=== PATIENT | female | born 1960 | race Caucasian/White ===

== ENCOUNTER → 2016-05-28 | Outpatient (CLI) | payer BC ==
[~2016-05-28] MED LIST: AMOX875T PO; ASPI-435 PO; ASPI325T45 PO; BIOT1CAP8 PO; CALC500C3 PO; CHOL2000 PO; CLTP; COENCAP8 PO; CYCL10TA6 PO; CYTM25 PO; HYDR-5688 PO; LEVO125T72 PO; METF500T PO; METH4PAK4 PO; MULT-506 PO; SIMV10TA2 PO; SYN100 PO; co q-10 PO
[2016-05-28 12:41] LABS: HEMATOCRIT 45.1 % (37-47); MEAN CELL VOLUME 88.4 fL (80-100); MEAN CORPUSCULAR HEMOGLOBIN 30.2 pg (25-34); MEAN CORPUSCULAR HGB CONC 34.1 g/dl (32-36); MEAN PLATELET VOLUME 10.5 fL (7.4-10.4); PLATELET COUNT 305 K/uL (130-400); WHITE BLOOD COUNT 10.59 K/uL (4.8-10.8)
[2016-05-28 13:17] LABS: ALKALINE PHOSPHATASE 69 U/L (45-117); ALT/SGPT 34 U/L (12-78); AMYLASE 72 U/L (25-115); AST/SGOT 16 U/L (15-37)
== END | disposition home or self-care (01) ==
LOC: C.LAB 11:47
PROVIDERS: ATTEND Nurse Practitioner Family
DX: R10.31 Right lower quadrant pain (principal); K80.20 Calculus of gallbladder without cholecystitis without obstruction

== ENCOUNTER 2016-05-29 08:48 | Inpatient (IN) | payer BC, OTHER ==
[2016-05-29] VITALS (7 sets, daily range): BP systolic 102–134; BP diastolic 64–89; PULSE 63–78; TEMP 36.3–36.6; O2SAT 94–99; Ht 160 cm; Wt 93.1 kg
[~2016-05-29] VITALS: Ht 160 cm; Wt 93.1 kg
[~2016-05-29 08:48] MED LIST changes: -AMOX875T PO; -ASPI325T45 PO; -CALC500C3 PO; -CHOL2000 PO; -COENCAP8 PO; -HYDR-5688 PO; -LEVO125T72 PO; -SIMV10TA2 PO
[2016-05-29] MEDS ORDERED: ONDANSETRON INJ 2 MG/ML 2 ML VIAL IV STA (09:09)
[2016-05-29] MEDS ORDERED: SODIUM CHLORIDE 0.9% 1000ML 1,000 ML IV STA (09:09)
[2016-05-29] MEDS ORDERED: KETOROLAC TROMETHAMINE 30 MG/ML VIAL IV STA (09:09)
[2016-05-29 09:28] LABS: BASO % 0.2 %; BASO ABS # 0.02 K/uL (0-0.2); COMPLETE YES; EOS % 0.5 %; IG% 0.3 %; LYMPH % 23.1 %; LYMPH ABS # 2.97 K/uL (1.2-3.4); MEAN CELL VOLUME 87.3 fL (80-100); MEAN CORPUSCULAR HEMOGLOBIN 30.2 pg (25-34); MEAN CORPUSCULAR HGB CONC 34.5 g/dl (32-36); MEAN PLATELET VOLUME 10.4 fL (7.4-10.4); MONO % 8.4 %; NEUT % 67.5 %; PLATELET COUNT 301 K/uL (130-400); RED BLOOD COUNT 5.04 M/uL (4.2-5.4); WHITE BLOOD COUNT 12.88 K/uL (4.8-10.8)
--- NOTE | 2016-05-29 09:31 | DIAGNOSTIC IMAGING REPORT ---
CHEST ONE VIEW PORTABLE CLINICAL HISTORY: Chest/abdominal pain COMPARISON STUDY: 09/08/2005 FINDINGS: The cardiac and mediastinal contours are normal. There is no evidence of focal pulmonary consolidation. There is no evidence of failure. No pleural effusions are visualized.[ No free air is visualized. IMPRESSION: No active disease in the chest. Electronically signed by: Alphonso Mcdaniels M.D. 05/29/2016 9:29 AM Dictated Date/Time: 05/29/2016 9:28 AM
[2016-05-29 09:46] LABS: URINE APPEARANCE CLOUDY (CLEAR); URINE COLOR DK YELLOW; URINE EPITHELIAL CELL AUTO >30 /lpf (0-5); URINE NITRITE NEG (NEG); URINE PH 5.5 (4.5-7.5); URINE SPECIFIC GRAVITY 1.024 (1.000-1.030); UROBILINOGEN NEG (NEG); ZZUR CULT IF INDIC CLEAN CATCH YES
[2016-05-29 09:46] LABS: CALCIUM 9.3 mg/dl (8.5-10.1); CREATININE 0.93 mg/dl (0.60-1.20)
[2016-05-29] MEDS ORDERED: SIMV10TA2 PO (09:54)
[2016-05-29] MEDS ORDERED: CALC500C3 PO (09:54)
[2016-05-29] MEDS ORDERED: LEVO125T72 PO (09:54)
[2016-05-29] MEDS ORDERED: ASPI325T45 PO (09:54)
[2016-05-29] MEDS ORDERED: CYTM25 PO (09:54)
[2016-05-29] MEDS ORDERED: CHOL2000 PO (09:54)
[2016-05-29] MEDS ORDERED: COENCAP8 PO (09:55)
[2016-05-29 09:57] LABS: MANUAL MICROSCOPIC REQUIRED? NO; REVIEW REQ? YES; URINE BILIRUBIN NEG (NEG)
[2016-05-29 10:12] LABS: URINE MUCUS PRESENT (NONE PRSENT)
--- NOTE | 2016-05-29 11:21 | DIAGNOSTIC IMAGING REPORT ---
BILIARY ULTRASOUND CLINICAL HISTORY: Right upper quadrant abdominal pain COMPARISON STUDY: No previous studies for comparison. FINDINGS: The liver is of increased echogenicity, a nonspecific finding most often seen in hepatic steatosis. There are multiple gallstones. There is mild gallbladder wall thickening and trace pericholecystic fluid. Given the symptoms, the findings may represent acute cholecystitis. There is no ductal dilatation. The common bile duct measures 3 mm. The pancreas was nonvisualized. The technologist reports the patient was tender to gallbladder scanning. IMPRESSION: 1. Multiple gallbladder calculi, distended gallbladder, mild gallbladder wall thickening, trace pericholecystic fluid. Given history of right upper quadrant abdominal pain, the findings are suspicious for acute cholecystitis. 2. No evidence of ductal dilatation. 3. Nondiagnostic evaluation the pancreas 4. Suspected hepatic steatosis Electronically signed by: Alphonso Mcdaniels M.D. 05/29/2016 11:19 AM Dictated Date/Time: 05/29/2016 11:17 AM
--- NOTE | 2016-05-29 11:44 | EMERGENCY ROOM VISIT NOTE ---
History Report prepared by Rigo: Vy Laughlin Under the Supervision of: Dr. Gilbert Crook D.O. First contact with patient: 09:01 Chief Complaint: ABDOMINAL PAIN Stated Complaint: EXTREME PAIN UPPER ABD AROUND TO BACK, MATHIAS, NAUSEA Nursing Triage Summary: Abdominal pain that radiates into her back. Seen by her PCP yesterday, had labs drawn and is scheduled for a ultrasound tomorrow. Pt states the pain is getting worse. History of Present Illness The patient is a 56 year old female who presents to the Emergency Room with complaints of worsening upper abdominal pain for the past 3 days. She rates her discomfort as a 6/10 and states the pain radiates into her back. She does have a history of low back pain, but states her current symptoms do not feel similar to her chronic pain. She saw her PCP, Dr. Neil, yesterday and had labs drawn and an EKG, and is scheduled for an ultrasound tomorrow. She states the labs and EKG came back unremarkable. This morning, she developed nausea and a headache. She has not been able to eat yet today. Source of History: patient Onset: 3 days [employer] Position: abdomen Symptom Intensity: 6/10 Timing: worsening Associated Symptoms: + back pain, + headache, + nausea, No vomiting Review of Systems See HPI for pertinent positives & negatives. A total of 10 systems reviewed and were otherwise negative. Past Medical & Surgical Medical Problems: (1) History of low back pain (2) History of thyroid cancer Surgical Problems: (1) History of section Social History Smoking Status: Never Smoker Smokeless Tobacco Use: No Alcohol Use: occasionally Drug Use: none Marital Status: Housing Status: lives with family Occupation Status: employed Current/Historical Medications Scheduled Aspirin (Aspirin 81), 1 TAB PO EVERY 2 DAYS Calcium Carbonate (Tums), 500 MG PO DAILY Cholecalciferol (Vitamin D3), 2,000 UNIT PO DAILY Coenzyme Z35-Xcgugns E (Coenzyme Q10), 1 CAP PO DAILY Levothyroxine Sodium (Synthroid), 125 MCG PO QAM Liothyronine Sodium (Liothyronine Sodium), 12.5 MCG PO QAM Metformin Hcl (Glucophage), 500 MG PO BID Multivitamin (Multivitamin), 1 TAB PO DAILY Simvastatin (Zocor), 10 MG PO Q2D Scheduled PRN Aspirin (Aspirin), 325 MG PO DAILY PRN for Pain Allergies Coded Allergies: Lisinopril (Unverified Allergy, Unknown, COUGHING, 05/29/16) Physical Exam Vital Signs Date Time Temp Pulse Resp B/P Pulse Ox O2 Delivery O2 Flow Rate FiO2 05/29/16 11:34 74 16 118/78 97 Room Air 05/29/16 10:18 71 18 124/84 95 Room Air 05/29/16 08:56 36.8 90 18 133/99 97 Room Air Physical Exam CONSTITUTIONAL/VITAL SIGNS: Reviewed / noted above. GENERAL: Non-toxic in appearance. INTEGUMENTARY: Warm, dry, and [place]. HEAD: Normocephalic. EYES: without scleral icterus or trauma. ENT/OROPHARYNX: clear and moist. LYMPHADENOPATHY/NECK: Is supple without lymphadenopathy or meningismus. RESPIRATORY: Lungs clear and equal. CARDIOVASCULAR: Regular rate and rhythm. GI/ABDOMEN: Soft, tender to the RUQ. No organomegaly or pulsatile mass. No rebound or guarding. Normal bowel sounds. EXTREMITIES: Warm and well perfused. BACK: No CVA tenderness. NEUROLOGICAL: Intact without focal deficits. PSYCHIATRIC: normal affect. MUSCULOSKELETAL: Normally developed with good muscle tone. Medical Decision & Procedures ER Provider Diagnostic Interpretation: This X-Ray was reviewed and interpreted by myself and the radiologist. CHEST ONE VIEW PORTABLE IMPRESSION: No active disease in the chest. Electronically signed by: Alphonso Mcdaniels M.D. 05/29/2016 9:29 AM Laboratory Results 05/29/16 09:15 Red Blood Count 5.04, Mean Corpuscular Volume 87.3, Mean Corpuscular Hemoglobin 30.2, Mean Corpuscular Hemoglobin Concent 34.5, Mean Platelet Volume 10.4, Neutrophils (%) (Auto) 67.5, Lymphocytes (%) (Auto) 23.1, Monocytes (%) (Auto) 8.4, Eosinophils (%) (Auto) 0.5, Basophils (%) (Auto) 0.2, Neutrophils # (Auto) 8.71, Lymphocytes # (Auto) 2.97, Monocytes # (Auto) 1.08, Eosinophils # (Auto) 0.06, Basophils # (Auto) 0.02 05/29/16 09:15 Test 05/29/16 09:15 05/29/16 09:30 White Blood Count 12.88 K/uL (4.8-10.8) Red Blood Count 5.04 M/uL (4.2-5.4) Hemoglobin 15.2 g/dL (12.0-16.0) Hematocrit 44.0 % (37-47) Mean Corpuscular Volume 87.3 fL (80-100) Mean Corpuscular Hemoglobin 30.2 pg (25-34) Mean Corpuscular Hemoglobin Concent 34.5 g/dl (32-36) Platelet Count 301 K/uL (130-400) Mean Platelet Volume 10.4 fL (7.4-10.4) Neutrophils (%) (Auto) 67.5 % Lymphocytes (%) (Auto) 23.1 % Monocytes (%) (Auto) 8.4 % Eosinophils (%) (Auto) 0.5 % Basophils (%) (Auto) 0.2 % Neutrophils # (Auto) 8.71 K/uL (1.4-6.5) Lymphocytes # (Auto) 2.97 K/uL (1.2-3.4) Monocytes # (Auto) 1.08 K/uL (0.11-0.59) Eosinophils # (Auto) 0.06 K/uL (0-0.5) Basophils # (Auto) 0.02 K/uL (0-0.2) RDW Standard Deviation 39.6 fL (36.4-46.3) RDW Coefficient of Variation 12.4 % (11.5-14.5) Immature Granulocyte % (Auto) 0.3 % Immature Granulocyte # (Auto) 0.04 K/uL (0.00-0.02) Anion Gap 14.0 mmol/L (3-11) Est Creatinine Clear Calc Drug Dose 73.2 ml/min Estimated GFR () 79.6 Estimated GFR (Non- 68.7 BUN/Creatinine Ratio 10.0 (10-20) Calcium Level 9.3 mg/dl (8.5-10.1) Total Bilirubin 0.8 mg/dl (0.2-1) Direct Bilirubin 0.2 mg/dl (0-0.2) Aspartate Amino Transf (AST/SGOT) 12 U/L (15-37) Alanine Aminotransferase (ALT/SGPT) 31 U/L (12-78) Alkaline Phosphatase 71 U/L (45-117) Total Protein 7.5 gm/dl (6.4-8.2) Albumin 4.1 gm/dl (3.4-5.0) Lipase 168 U/L (73-393) Urine Color DK YELLOW Urine Appearance CLOUDY (CLEAR) Urine pH 5.5 (4.5-7.5) Urine Specific [place] 1.024 (1.000-1.030) Urine Protein 1+ (NEG) Urine Glucose (UA) NEG (NEG) Urine Ketones TRACE (NEG) Urine Occult Blood TRACE (NEG) Urine Nitrite NEG (NEG) Urine Bilirubin NEG (NEG) Urine Urobilinogen NEG (NEG) Urine Leukocyte Esterase SMALL (NEG) Urine WBC (Auto) 10-30 /hpf (0-5) Urine RBC (Auto) 5-10 /hpf (0-4) Urine Hyaline Casts (Auto) 10-30 /lpf (0-5) Urine Epithelial Cells (Auto) >30 /lpf (0-5) Urine Bacteria (Auto) NEG (NEG) Urine Renal Epithelial Cells /lpf (0-5) Urine Mucus PRESENT (NONE PRSENT) Laboratory results as stated above per my review. Medications Administered Medications (Trade) Dose Ordered Sig/Oksana Route Start Time Stop Time Status Last Admin Dose Admin Sodium Chloride (Nss 1000ml) 1,000 ml @ 999 mls/hr Q1H1M STAT IV 05/29/16 09:09 05/29/16 10:09 DC 05/29/16 09:09 999 MLS/HR Ondansetron HCl (Zofran Inj) 4 mg NOW STAT IV 05/29/16 09:09 05/29/16 09:11 DC 05/29/16 09:18 4 MG Ketorolac Tromethamine (Toradol Inj) 30 mg NOW STAT IV 05/29/16 09:09 05/29/16 09:11 DC 05/29/16 09:19 30 MG ED Course 0905: Previous medical records were reviewed. The patient was evaluated in room A11B. A complete history and physical examination was performed. 0909: Toradol 30 mg IV, Zofran 4 mg IV, NSS 1000 ml @ 999 mls/hr IV. 1138: I discussed the patient's case with Dr. [place], [facility] [place]. The patient will be further evaluated. 1140: I reassessed the patient. She is resting comfortably. I discussed her results and my recommendation that she be further evaluated by a general surgeon. She verbalized complete understanding and agreement. Medical Decision Differential considered: pancreatitis, hepatitis, or acute cholecystitis, AAA, UTI, pyelonephritis, kidney stones, appendicitis, diverticulitis, shingles, bowel obstruction mesenteric ischemia, intussusception,hernia, ovarian torsion, ruptured ovarian cyst,ectopic , . This is a 56-year-old female who presents to the ED with a chief complaint of epigastric and right upper quadrant pain. The patient states that she has had onset of symptoms Monday morning. She was seen by her PCP yesterday and had a normal CBC and a slightly elevated lipase and normal LFTs. She was scheduled to have an ultrasound tomorrow. She came in for continued pain today. The patient has tenderness the right upper quadrant on exam. Her CBC reveals a white blood cell count of 12.8. A complete metabolic panel was normal. Lipase was normal today. Chest x-ray did not show acute disease. Urine appears contaminated. Ultrasound of her gallbladder shows findings consistent with acute cholecystitis. I spoke with Dr. Thomas, from surgery, he will see the patient for further disposition. Consults Time Called: 1137 Consulting Physician[facility] Returned Call: [phone] I discussed the patient's case with KIMBERLEE Mir General Surgery. The patient will be further evaluated. Impression Primary Impression: Cholecystitis Scribe Attestation The scribe's documentation has been prepared under my direction and personally reviewed by me in its entirety. I confirm that the note above accurately reflects all work, treatment, procedures, and medical decision making performed by me. Departure Information Dispostion Being Evaluated By Surgeon Kee Jean M.D. (PCP) Patient Instructions My [facility]
[2016-05-29] MEDS ORDERED: CEFOXITIN SOD 2 GM VIAL IV STA (12:10)
[2016-05-29] MEDS ORDERED: FENTANYL CITRATE INJ 50 MCG/1 ML 2 ML VIAL ONE ×2 (12:13→13:11)
[2016-05-29] MEDS ORDERED: MIDAZOLAM HCL 1 MG/ML 2ML VIAL ONE (12:13)
--- NOTE | 2016-05-29 12:15 | History and Physical ---
History & Physical Date & Time of Service: May 29, 2016 at 12:10 Chief Complaint: Extreme Pain Upper Abd Around To Back, Benitez, Nausea Primary Care Physician: Kee Neil M.D. History of Present Illness 56 yo female with abd pain and findings c/w cholecystitis- yesterday was in PCP' s office with elev lipase- nl today u/s- mult gs , distended , fluid Social History Smoking Status: Never Smoker Smokeless Tobacco Use: No Drug Use: none Marital Status: Occupational Status: employed Immunizations History of Influenza Vaccine: Unknown History of Tetanus Vaccine?: Unknown Tetanus Immunization Date: May 08, 2005 History of Pneumococcal: Unknown History of Hepatitis B Vaccine: Unknown Hepatitis Immunization Date: September 13, 1995 Multi-Drug Resistant Organisms History of MDRO: No Allergies Coded Allergies: Lisinopril (Unverified Allergy, Unknown, COUGHING, 05/29/16) Home Medications Scheduled Aspirin (Aspirin 81), 1 TAB PO EVERY 2 DAYS Calcium Carbonate (Tums), 500 MG PO DAILY Cholecalciferol (Vitamin D3), 2,000 UNIT PO DAILY Coenzyme N81-Dhnimwn E (Coenzyme Q10), 1 CAP PO DAILY Levothyroxine Sodium (Synthroid), 125 MCG PO QAM Liothyronine Sodium (Liothyronine Sodium), 12.5 MCG PO QAM Metformin Hcl (Glucophage), 500 MG PO BID Multivitamin (Multivitamin), 1 TAB PO DAILY Simvastatin (Zocor), 10 MG PO Q2D Scheduled PRN Aspirin (Aspirin), 325 MG PO DAILY PRN for Pain Review of Systems Constitutional: No chills, No fever Respiratory: No cough, No sputum Cardiovascular: No chest pain Abdomen: + nausea, + pain, No vomiting Genitourinary - Female: No dysuria Neurologic: No memory loss Endocrine: No fatigue Integumentary: No rash Physical Exam Vital Signs Date Time Temp Pulse Resp B/P Pulse Ox O2 Delivery O2 Flow Rate FiO2 05/29/16 11:34 74 16 118/78 97 Room Air 05/29/16 10:18 71 18 124/84 95 Room Air 05/29/16 08:56 36.8 90 18 133/99 97 Room Air General Appearance: no apparent distress Head: atraumatic Eyes: sclerae normal Neck: supple Respiratory/Chest: normal breath sounds, no respiratory distress Cardiovascular: regular rate, rhythm Abdomen/GI: soft, + tenderness (RUQ) Extremities/Musculoskelatal: no pedal edema Neurologic/Psych: alert Skin: no rash Diagnostics Laboratory Results Results Past 24 Hours Test 05/29/16 09:15 05/29/16 09:30 Range/Units White Blood Count 12.88 4.8-10.8 K/uL Red Blood Count 5.04 4.2-5.4 M/uL Hemoglobin 15.2 12.0-16.0 g/dL Hematocrit 44.0 37-47 % Mean Corpuscular Volume 87.3 80-100 fL Mean Corpuscular Hemoglobin 30.2 25-34 pg Mean Corpuscular Hemoglobin Concent 34.5 32-36 g/dl Platelet Count 301 130-400 K/uL Mean Platelet Volume 10.4 7.4-10.4 fL Neutrophils (%) (Auto) 67.5 % Lymphocytes (%) (Auto) 23.1 % Monocytes (%) (Auto) 8.4 % Eosinophils (%) (Auto) 0.5 % Basophils (%) (Auto) 0.2 % Neutrophils # (Auto) 8.71 1.4-6.5 K/uL Lymphocytes # (Auto) 2.97 1.2-3.4 K/uL Monocytes # (Auto) 1.08 0.11-0.59 K/uL Eosinophils # (Auto) 0.06 0-0.5 K/uL Basophils # (Auto) 0.02 0-0.2 K/uL RDW Standard Deviation 39.6 36.4-46.3 fL RDW Coefficient of Variation 12.4 11.5-14.5 % Immature Granulocyte % (Auto) 0.3 % Immature Granulocyte # (Auto) 0.04 0.00-0.02 K/uL Sodium Level 140 136-145 mmol/L Potassium Level 4.0 3.5-5.1 mmol/L Chloride Level 103 98-107 mmol/L Carbon Dioxide Level 23 21-32 mmol/L Anion Gap 14.0 3-11 mmol/L Blood Urea Nitrogen 9 7-18 mg/dl Creatinine 0.93 0.60-1.20 mg/dl Est Creatinine Clear Calc Drug Dose 73.2 ml/min Estimated GFR () 79.6 Estimated GFR (Non- 68.7 BUN/Creatinine Ratio 10.0 10-20 Random Glucose 128 70-99 mg/dl Calcium Level 9.3 8.5-10.1 mg/dl Total Bilirubin 0.8 0.2-1 mg/dl Direct Bilirubin 0.2 0-0.2 mg/dl Aspartate Amino Transf (AST/SGOT) 12 15-37 U/L Alanine Aminotransferase (ALT/SGPT) 31 12-78 U/L Alkaline Phosphatase 71 45-117 U/L Total Protein 7.5 6.4-8.2 gm/dl Albumin 4.1 3.4-5.0 gm/dl Lipase 168 73-393 U/L Urine Color DK YELLOW Urine Appearance CLOUDY CLEAR Urine pH 5.5 4.5-7.5 Urine Specific [place] 1.024 1.000-1.030 Urine Protein 1+ NEG Urine Glucose (UA) NEG NEG Urine Ketones TRACE NEG Urine Occult Blood TRACE NEG Urine Nitrite NEG NEG Urine Bilirubin NEG NEG Urine Urobilinogen NEG NEG Urine Leukocyte Esterase SMALL NEG Urine WBC (Auto) 10-30 0-5 /hpf Urine RBC (Auto) 5-10 0-4 /hpf Urine Hyaline Casts (Auto) 10-30 0-5 /lpf Urine Epithelial Cells (Auto) >30 0-5 /lpf Urine Bacteria (Auto) NEG NEG Urine Renal Epithelial Cells 0-5 /lpf Urine Mucus PRESENT NONE PRSENT Microbiology Results 05/29/16 Urine Culture, Received Pending Impression Assessment and Plan 05/29/16- pt with acute cholecystitis- for lap tisha, possible cholangiogram, possible open operation
[2016-05-29] MEDS ORDERED: SCOPOLAMINE 1.5 MG TDSY TD ONE (12:38)
[2016-05-29] MEDS ORDERED: LIDOCAINE HCL 2% 2 ML VIAL (20MG/ML) ONE (13:12)
[2016-05-29] MEDS ORDERED: ROCURONIUM BROMIDE 10 MG/ML 5 ML VIAL ONE (13:12)
[2016-05-29] MEDS ORDERED: ONDANSETRON INJ 2 MG/ML 2 ML VIAL ONE (13:12)
[2016-05-29] MEDS ORDERED: DiphenhydrAMINE HCL 50 MG/ML VIAL ONE (13:12)
[2016-05-29] MEDS ORDERED: GLYCOPYRROLATE INJ 0.2 MG/ML VIAL ONE (13:12)
[2016-05-29] MEDS ORDERED: PROPOFOL IV EMULSION 10 MG/ML 20 ML VIAL IV ONE (13:12)
[2016-05-29] MEDS ORDERED: NEOSTIGMINE METHYLSULFATE 5 MG/5 ML SYR ONE (13:12)
[2016-05-29] MEDS ORDERED: METOCLOPRAMIDE HCL INJ 5 MG/ML 2 ML VIAL ONE (13:12)
[2016-05-29] MEDS ORDERED: DEXAMETHASONE SOD INJ 4 MG/ML VIAL ONE (13:12)
[2016-05-29] MEDS ORDERED: CEFOXITIN SOD 1 GM VIAL ONE (13:19)
[2016-05-29] MEDS ORDERED: HYDROmorphone INJ 1 MG/ML SYR IV PRN ×2 (14:00→14:30)
[2016-05-29] MEDS ORDERED: ATROPINE SULFATE 0.1 MG/ML 5ML SYR IV PRN (14:00)
[2016-05-29] MEDS ORDERED: FENTANYL CITRATE INJ 50 MCG/1 ML 2 ML VIAL IV PRN (14:00)
[2016-05-29] MEDS ORDERED: LABETALOL HCL IV 5 MG/ML 20ML IV PRN (14:00)
[2016-05-29] MEDS ORDERED: MEPERIDINE HCL 25 MG/ML CARP IV PRN (14:00)
[2016-05-29] MEDS ORDERED: ONDANSETRON INJ 2 MG/ML 2 ML VIAL IV PRN ×2 (14:00→14:30)
[2016-05-29] MEDS ORDERED: EpHEDrine SULFATE INJ 50 MG/ML AMP IV PRN (14:00)
[2016-05-29] MEDS ORDERED: BUPIVACAINE 0.5 % 5 MG/1 ML MPF 30ML VIAL INJ ONE (14:02)
[2016-05-29] MEDS ORDERED: HYDROCODONE/ACETAMOPHEN 5/325MG TAB PO PRN (14:30)
[2016-05-29] MEDS ORDERED: PROMETHAZINE HCL INJ 25 MG in SODIUM CHLORIDE 0.9% 50ML 50 ML IV PRN (14:30)
[2016-05-29] MEDS ORDERED: HYDROmorphone INJ 0.5 MG/0.5 ML SYR IV PRN (14:30)
--- NOTE | 2016-05-29 14:30 | [facility] Operative Report ---
Operative Report Operative Date May 29, 2016. Pre-Operative Diagnosis Acute cholecystitis Post-Operative Diagnosis acute/ necritizing cholecystitis Procedure(s) Performed lap tisha Surgeon Dr. Alan Thomas Deputy Sheriff Custody Surgeon(s) None Estimated Blood Loss 50 mL Findings severe adhesionsto gb, thickening, severe chronic inflammation Specimens Permanent Specimens A: Gallbladder and contents Drains #[address] MARINA to subhepatic space Anesthesia gen Complication(s) None Disposition Recovery Room / PACU I attest to the content of the Intraoperative Record and any orders documented therein. Any exceptions are noted below.
[2016-05-29] MEDS ORDERED: PROMETHAZINE HCL INJ 12.5 MG in SODIUM CHLORIDE 0.9% 50ML 50 ML IV PRN (15:00)
[2016-05-29 15:32] LABS: HEMATOCRIT 40.9 % (37-47); MEAN CELL VOLUME 88.9 fL (80-100); MEAN CORPUSCULAR HEMOGLOBIN 30.2 pg (25-34); MEAN PLATELET VOLUME 10.3 fL (7.4-10.4); PLATELET COUNT 247 K/uL (130-400)
--- NOTE | 2016-05-29 15:42 | Anesthesiology Progress Note ---
Anesthesia Post Op Note Date & Time May 29, 2016 at 15:41 Vital Signs Pain Intensity: 0 Vital Signs Past 12 Hours Date Time Temp Pulse Resp B/P Pulse Ox O2 Delivery O2 Flow Rate FiO2 05/29/16 15:30 68 17 93 05/29/16 15:30 65 16 95 05/29/16 15:28 139/89 05/29/16 15:22 36.5 05/29/16 15:20 66 16 05/29/16 15:20 67 16 100 05/29/16 15:19 64 23 05/29/16 15:19 65 23 140/91 92 05/29/16 15:14 135/94 05/29/16 15:09 65 27 100 05/29/16 15:09 63 15 100 05/29/16 15:08 146/98 05/29/16 15:07 65 22 100 05/29/16 15:07 61 16 100 05/29/16 15:05 131/92 05/29/16 15:02 63 16 05/29/16 15:02 64 16 100 05/29/16 15:01 62 16 05/29/16 15:01 63 16 100 05/29/16 14:58 122/88 05/29/16 14:56 63 16 100 05/29/16 14:56 63 16 100 05/29/16 14:53 141/98 05/29/16 14:50 65 15 100 05/29/16 14:50 66 16 100 05/29/16 14:48 138/91 05/29/16 14:45 67 16 100 05/29/16 14:45 67 16 05/29/16 14:43 132/91 05/29/16 14:40 36.4 71 16 134/93 100 Mask 10 05/29/16 12:38 73 16 120/79 97 05/29/16 11:34 74 16 118/78 97 Room Air 05/29/16 10:18 71 18 124/84 95 Room Air 05/29/16 08:56 36.8 90 18 133/99 97 Room Air Notes Mental Status: alert / awake / arousable, participated in evaluation Pt Amnestic to Procedure: Yes Nausea / Vomiting: adequately controlled Pain: adequately controlled Airway Patency, RR, SpO2: stable & adequate BP & HR: stable & adequate Hydration State: stable & adequate Anesthetic Complications: no major complications apparent
[2016-05-29] MEDS: LACTATED RINGER'S 1000ML 1,000 ML IV SCH (16:39)
[2016-05-29] MEDS ORDERED: NURSING VERBAL MED ORDER ONE ×2 (17:45→18:30)
[2016-05-29] MEDS: HYDROCODONE/ACETAMOPHEN 5/325MG TAB PO PRN (18:07)
[2016-05-29] MEDS ORDERED: GLUCAGON FOR INJ 1 MG VIAL SQ PRN (20:00)
[2016-05-29] MEDS ORDERED: GLUCOSE 40% GEL 15 GM TUBE PO PRN (20:00)
[2016-05-29] MEDS ORDERED: DEXTROSE 50% 50 ML SYR IV PRN (20:00)
[2016-05-29] MEDS ORDERED: GLUCOSE 10 TABS/TUBE PO PRN (20:00)
[2016-05-29 20:21] LABS: HEMATOCRIT 40.4 % (37-47)
--- NOTE | 2016-05-29 21:09 | Medical Consult ---
Consultation Date of Consultation: May 29, 2016. Attending Physician: Alan Thomas M.D. Reason for Consultation: Postoperative medical management History of Present Illness The patient is a 56-year-old female who presented to the emergency department with worsening upper abdominal pain over the previous 3 days, and then developed nausea and a headache this morning, which caused her to be unable to eat anything today. Workup in the emergency department included laboratories and an ultrasound, which suggested gallbladder disease. The patient was assessed by Dr. Alan Thomas, who took the patient to the OR and performed a laparoscopic cholecystectomy, and admitted the patient, and requested consult for postoperative medical management. Past Medical/Surgical History Medical Problems: (1) Cholecystitis Status: Acute Social History Smoking Status: Never Smoker Smokeless Tobacco Use: No Drug Use: none Marital Status: Housing Status: lives with family Occupation Status: employed Allergies Coded Allergies: Lisinopril (Unverified Allergy, Unknown, COUGHING, 05/29/16) Current Inpatient Medications Current Inpatient Medications Medications (Trade) Dose Ordered Sig/Oksana Route Start Time Stop Time Status Last Admin Dose Admin Levothyroxine Sodium (Synthroid Tab) 125 mcg DAILYBB PO 05/30/16 06:00 06/29/16 06:59 Liothyronine Sodium (Cytomel Tab) 12.5 mcg DAILYBB PO 05/30/16 06:00 06/29/16 06:59 Simvastatin 10 mg 10 mg Q2D PO 05/30/16 09:00 06/29/16 08:59 Lactated Ringer's 1,000 ml @ 75 mls/hr [id number] IV 05/29/16 14:30 06/28/16 14:29 05/29/16 16:39 75 MLS/HR Cefoxitin Sodium/ Dextrose (Mefoxin IV/D5 50ml) 60 ml @ 100 mls/hr Q8 IV 05/29/16 22:00 06/08/16 21:59 Acetaminophen/ Hydrocodone Bitart (Odd 5/325 Tab) 1 tab Q4 PRN PO 05/29/16 14:30 06/12/16 14:29 Acetaminophen/ Hydrocodone Bitart (Odd 5/325 Tab) 2 tab Q4 PRN PO 05/29/16 14:30 06/12/16 14:29 05/29/16 18:07 2 TAB Hydromorphone HCl (Dilaudid Inj) 0.5 mg Q3H PRN IV 05/29/16 14:30 06/12/16 14:29 Hydromorphone HCl 1 mg 1 mg Q3H PRN IV 05/29/16 14:30 06/12/16 14:29 Promethazine HCl/ Sodium Chloride (Phenergan Inj/ Nss 50ml) 51 ml @ 204 mls/hr Q6H PRN IV 05/29/16 14:30 06/28/16 14:29 Ondansetron HCl 4 mg 4 mg Q6H PRN IV 05/29/16 14:30 06/28/16 14:29 Promethazine HCl/ Sodium Chloride (Phenergan Inj/ Nss 50ml) 50.5 ml @ 204 mls/hr Q6H PRN IV 05/29/16 15:00 06/28/16 14:59 Insulin Aspart (novoLOG ASPART) SLIDING SCALE If C... ACHS SC 05/29/16 21:00 06/28/16 20:59 Glucose (Glucose 40% Gel) UD PRN PO 05/29/16 20:00 06/28/16 19:59 Glucose (Glucose Chew Tab) 1 tabs UD PRN PO 05/29/16 20:00 06/28/16 19:59 Dextrose (Dextrose 50% 50ML Syringe) 50 ml UD PRN IV 05/29/16 20:00 06/28/16 19:59 Glucagon (Glucagon Inj) 1 mg UD PRN SQ 05/29/16 20:00 06/28/16 19:59 Review of Systems The patient denies chest pain, palpitations, shortness of breath, cough, lower extremity swelling, vision change, hearing change, sore throat, fevers, chills, sweats, pelvic pain, blood in urine or stool, dysuria, urinary frequency or urgency, lightheadedness, dizziness, headache, memory loss, rash, abnormal bruising or bleeding, imbalance, focal or generalized weakness, numbness or tingling in arms or legs, arthralgias or myalgias, back or neck pain. She does report the usual postoperative incisional pain. The review of systems is otherwise negative other than for that already noted above, and at least 10 systems have been reviewed. Physical Exam Date Time Temp Pulse Resp B/P Pulse Ox O2 Delivery O2 Flow Rate FiO2 05/29/16 19:40 Room Air 05/29/16 18:40 78 18 108/73 94 Room Air 05/29/16 17:40 36.3 65 18 127/86 95 Room Air 05/29/16 16:40 68 18 132/82 99 Nasal Cannula 2.0 05/29/16 16:10 36.6 68 18 130/89 95 Nasal Cannula 2.0 05/29/16 15:54 36.6 63 18 134/83 95 Nasal Cannula 2.0 05/29/16 15:40 36.6 63 18 134/83 95 Nasal Cannula 2.0 05/29/16 15:40 95 Nasal Cannula 2.0 05/29/16 15:40 36.6 64 18 134/83 94 Nasal Cannula 2.0 05/29/16 15:40 95 Nasal Cannula 2.0 05/29/16 15:30 68 17 93 05/29/16 15:30 65 16 95 05/29/16 15:28 139/89 05/29/16 15:22 36.5 05/29/16 15:20 66 16 05/29/16 15:20 67 16 100 05/29/16 15:19 64 23 05/29/16 15:19 65 23 140/91 92 05/29/16 15:14 135/94 05/29/16 15:09 65 27 100 05/29/16 15:09 63 15 100 05/29/16 15:08 146/98 05/29/16 15:07 65 22 100 05/29/16 15:07 61 16 100 05/29/16 15:05 131/92 05/29/16 15:02 63 16 05/29/16 15:02 64 16 100 05/29/16 15:01 62 16 05/29/16 15:01 63 16 100 05/29/16 14:58 122/88 05/29/16 14:56 63 16 100 05/29/16 14:56 63 16 100 05/29/16 14:53 141/98 05/29/16 14:50 65 15 100 05/29/16 14:50 66 16 100 05/29/16 14:48 138/91 05/29/16 14:45 67 16 100 05/29/16 14:45 67 16 05/29/16 14:43 132/91 05/29/16 14:40 36.4 71 16 134/93 100 Mask 10 05/29/16 12:38 73 16 120/79 97 05/29/16 11:34 74 16 118/78 97 Room Air 05/29/16 10:18 71 18 124/84 95 Room Air 05/29/16 08:56 36.8 90 18 133/99 97 Room Air The patient is awake, well-developed and adequately nourished, alert and oriented 3, normocephalic and atraumatic, lying in bed and in no acute distress. HEENT--PERRL, EOMI, mucous membranes moist, and oropharynx normal. Neck--supple, no JVD or bruits, thyroid normal, trachea midline, no adenopathy. Heart--normal S1 and S2, no extra beats, no murmurs, rubs or gallops. Lungs--clear bilaterally, no respiratory distress, no accessory muscle use. Abdomen--normal bowel sounds and soft, incisional pain, no hernias or masses, no organomegaly. Extremities--no cyanosis, clubbing or edema. There are good distal pulses b/l. Dermatologic--normal skin turgor, normal color, warm and dry, no abnormal lymph nodes, no rash. Neurologic--cranial nerves II through XII grossly intact, motor and sensory examination normal. Rheumatologic--normal range of motion, nontender, muscles and joints. Psychiatric--normal affect. Laboratory Results Last 24 Hours Test 05/29/16 09:15 05/29/16 09:30 05/29/16 15:20 05/29/16 20:08 White Blood Count 12.88 K/uL 12.20 K/uL Red Blood Count 5.04 M/uL 4.60 M/uL Hemoglobin 15.2 g/dL 13.9 g/dL 13.4 g/dL Hematocrit 44.0 % 40.9 % 40.4 % Mean Corpuscular Volume 87.3 fL 88.9 fL Mean Corpuscular Hemoglobin 30.2 pg 30.2 pg Mean Corpuscular Hemoglobin Concent 34.5 g/dl 34.0 g/dl Platelet Count 301 K/uL 247 K/uL Mean Platelet Volume 10.4 fL 10.3 fL Neutrophils (%) (Auto) 67.5 % Lymphocytes (%) (Auto) 23.1 % Monocytes (%) (Auto) 8.4 % Eosinophils (%) (Auto) 0.5 % Basophils (%) (Auto) 0.2 % Neutrophils # (Auto) 8.71 K/uL Lymphocytes # (Auto) 2.97 K/uL Monocytes # (Auto) 1.08 K/uL Eosinophils # (Auto) 0.06 K/uL Basophils # (Auto) 0.02 K/uL RDW Standard Deviation 39.6 fL 39.8 fL RDW Coefficient of Variation 12.4 % 12.4 % Immature Granulocyte % (Auto) 0.3 % Immature Granulocyte # (Auto) 0.04 K/uL Sodium Level 140 mmol/L Potassium Level 4.0 mmol/L Chloride Level 103 mmol/L Carbon Dioxide Level 23 mmol/L Anion Gap 14.0 mmol/L Blood Urea Nitrogen 9 mg/dl Creatinine 0.93 mg/dl Est Creatinine Clear Calc Drug Dose 73.2 ml/min Estimated GFR () 79.6 Estimated GFR (Non- 68.7 BUN/Creatinine Ratio 10.0 Random Glucose 128 mg/dl Calcium Level 9.3 mg/dl Total Bilirubin 0.8 mg/dl Direct Bilirubin 0.2 mg/dl Aspartate Amino Transf (AST/SGOT) 12 U/L Alanine Aminotransferase (ALT/SGPT) 31 U/L Alkaline Phosphatase 71 U/L Total Protein 7.5 gm/dl Albumin 4.1 gm/dl Lipase 168 U/L Urine Color DK YELLOW Urine Appearance CLOUDY Urine pH 5.5 Urine Specific Cutler 1.024 Urine Protein 1+ Urine Glucose (UA) NEG Urine Ketones TRACE Urine Occult Blood TRACE Urine Nitrite NEG Urine Bilirubin NEG Urine Urobilinogen NEG Urine Leukocyte Esterase SMALL Urine WBC (Auto) 10-30 /hpf Urine RBC (Auto) 5-10 /hpf Urine Hyaline Casts (Auto) 10-30 /lpf Urine Epithelial Cells (Auto) >30 /lpf Urine Bacteria (Auto) NEG Urine Renal Epithelial Cells /lpf Urine Mucus PRESENT Assessment & Plan Status post laparoscopic cholecystectomy--per Dr. Thomas. Diabetes mellitus--hold metformin 500 mg by mouth twice a day, place and Accu- Cheks before meals and at bedtime with NovoLog coverage. Hypercholesterolemia--continue simvastatin 10 mg by mouth every 2 days. Hypothyroidism--continue levothyroxine sodium 125 g by mouth every morning and liothyronine sodium 12.5 g by mouth every morning. [facility] hospitalist service will follow during hospital stay. Thank you for this consult.
[2016-05-29] MEDS: CEFOXITIN IV 1,000 MG in DEXTROSE 5% 50ML 50 ML IV SCH (21:25)
[2016-05-29] MEDS: INSULIN ASPART 100 UNITS/ML 3 ML PEN SC SCH (21:33)
--- NOTE | 2016-05-30 01:32 | OPERATIVE REPORT ---
DATE OF OPERATION: 05/29/2016 NAME OF OPERATION: Laparoscopic cholecystectomy. PREOPERATIVE DIAGNOSIS: Acute cholecystitis. POSTOPERATIVE DIAGNOSIS: Acute necrotizing cholecystitis. STAFF SURGEON: Dr. Thomas. ANESTHESIA: General. FINDINGS: The patient had severe chronic adhesions to the gallbladder. It was very distended, thickened and acutely inflamed with a large stone in the neck of the gallbladder and evidence of severe chronic disease. DESCRIPTION OF PROCEDURE: The patient was brought into the operating room and placed on the operating table in supine position. Her abdomen was prepped and draped in the usual fashion. Pneumatic stockings and orogastric tube were placed. 0.5% plain Marcaine was used to anesthetize all incisions. Incision was made above the umbilicus, carrying the dissection down to the fascia, placing a Veress needle producing pneumoperitoneum. An 11 mm port was placed at this level and then three 5 mm ports placed under visualization. The omentum was severely adherent to the gallbladder in a chronic fashion and the gallbladder was severely distended. I did attempt to aspirate bile from the gallbladder, but it was extremely thick and sludge-like. I was able to gradually take the adhesions down both sharply and bluntly to the tip of the gallbladder at the kinsey hepatis; however, the patient's gallbladder was very large, and she had a large stone in the neck of the gallbladder, which made retraction difficult. Gradually, I was able to retract the gallbladder and identify the cystic duct which was clipped and transected. Then the cystic artery identified, clipped and transected. Then the gallbladder was dissected away from the liver bed, it was severely thickened and inflamed in the posterior wall with chronic inflammation. The gallbladder was placed in an Endobag. Again, it was very large. After appropriate irrigation and hemostasis, a #15 round Louie-Sr drain was placed through the lateral 5 mm port site into the subhepatic space, secured to the skin using 3-0 nylon suture. Using a 5 mm camera, the bag was brought up through the umbilical site. I had to enlarge the skin and the fascia because the gallbladder was very large, and she had large stones within the gallbladder. At this point, once the gallbladder was removed, we closed the fascia using interrupted #1 PDS suture, subcutaneous tissue reapproximated using 2-0 plain catgut suture, then the skin reapproximated using 4-0 nylon suture. The patient did show some mild bleeding secondary to her use of aspirin. I attest to the content of the Intraoperative Record and any orders documented therein. Any exceptio ns are noted below.
[2016-05-30 05:28] LABS: HEMATOCRIT 36.6 % (37-47); MEAN CELL VOLUME 88.4 fL (80-100); MEAN CORPUSCULAR HEMOGLOBIN 29.2 pg (25-34); MEAN CORPUSCULAR HGB CONC 33.1 g/dl (32-36); MEAN PLATELET VOLUME 10.3 fL (7.4-10.4); PLATELET COUNT 258 K/uL (130-400); RED BLOOD COUNT 4.14 M/uL (4.2-5.4); WHITE BLOOD COUNT 10.12 K/uL (4.8-10.8)
[2016-05-30] MEDS: CEFOXITIN IV 1,000 MG in DEXTROSE 5% 50ML 50 ML IV SCH ×3 (05:52→21:37)
[2016-05-30] MEDS: LIOTHYRONINE SODIUM 25 MCG TAB PO SCH (05:53)
[2016-05-30] MEDS: LEVOTHYROXINE 125 MCG TAB PO SCH (05:53)
[2016-05-30] MEDS: LACTATED RINGER'S 1000ML 1,000 ML IV SCH ×2 (05:54→17:10)
[2016-05-30 06:05] LABS: CALCIUM 8.3 mg/dl (8.5-10.1); CREATININE 0.8 mg/dl (0.60-1.20); MAGNESIUM 2.5 mg/dl (1.8-2.4); POTASSIUM 4.4 mmol/L (3.5-5.1)
[2016-05-30 06:10] LABS: ALB/GLOB RATIO 1.1 (0.9-2); PHOSPHORUS 3.6 mg/dl (2.5-4.9)
[2016-05-30 07:20] LABS: PROTHROMBIN TIME (PATIENT) 10.2 SECONDS (9.0-12.0)
[2016-05-30 07:26] VITALS: BP 113/76; PULSE 67; TEMP 36.8; O2SAT 95
[2016-05-30] MEDS: INSULIN ASPART 100 UNITS/ML 3 ML PEN SC SCH ×4 (08:44→20:51)
[2016-05-30] MEDS: HEPARIN SOD 5000 UNIT/0.5 ML CARP SQ SCH ×2 (08:45→20:50)
[2016-05-30] MEDS ORDERED: SIMVASTATIN 10 MG TAB PO SCH (09:00)
[2016-05-30 11:58] VITALS: BP 111/72; PULSE 74
[2016-05-30] MEDS: HYDROCODONE/ACETAMOPHEN 5/325MG TAB PO PRN (16:27)
[2016-05-30 17:07] VITALS: BP 119/81; PULSE 68; O2SAT 97
--- NOTE | 2016-05-30 17:11 | Hospitalist Progress Note ---
Hospitalist Progress Note Date of Service May 30, 2016. Subjective Pt evaluation today including: conversation w/ patient, physical exam, chart review, lab review, review of studies, review of inpatient medication list Patient is doing well. She has no complaints. Tolerating diet. Additional Comments: A 10 system review was performed and all were negative. Positives were placed in the subjective section. Objective Vital Signs Date Time Temp Pulse Resp B/P Pulse Ox O2 Delivery O2 Flow Rate FiO2 05/30/16 11:58 74 18 111/72 05/30/16 07:26 36.8 67 18 113/76 95 Room Air 05/30/16 07:25 Room Air 05/29/16 23:18 36.6 63 18 102/64 96 Room Air 05/29/16 19:40 Room Air 05/29/16 18:40 78 18 108/73 94 Room Air 05/29/16 17:40 36.3 65 18 127/86 95 Room Air Physical Exam Notes: GEN: Awake, alert, and oriented x 3. Not in acute distress HEENT: Tm's intact, no inflammation, EOMI, PERRLA, MMM Neck: Soft, supple Lungs: CTA b/l, no r/r/w Heart: REG, nrl S1S2 without murmurs, rubs or gallops Abdomen: Soft, NT, ND, + BS EXT: No C/C/E NEURO: CN's II-XII grossly intact, non-focal Skin: warm, dry, no rashes PSYCH: pleasant, cooperative, no signs of significant anxiety or depression. Laboratory Results Last 24 Hours Test 05/29/16 20:08 05/29/16 20:49 05/30/16 04:55 05/30/16 06:55 Hemoglobin 13.4 g/dL 12.1 g/dL Hematocrit 40.4 % 36.6 % Bedside Glucose 202 mg/dl White Blood Count 10.12 K/uL Red Blood Count 4.14 M/uL Mean Corpuscular Volume 88.4 fL Mean Corpuscular Hemoglobin 29.2 pg Mean Corpuscular Hemoglobin Concent 33.1 g/dl RDW Standard Deviation 39.1 fL RDW Coefficient of Variation 12.2 % Platelet Count 258 K/uL Mean Platelet Volume 10.3 fL Sodium Level 142 mmol/L Potassium Level 4.4 mmol/L Chloride Level 108 mmol/L Carbon Dioxide Level 23 mmol/L Anion Gap 11.0 mmol/L Blood Urea Nitrogen 14 mg/dl Creatinine 0.80 mg/dl Est Creatinine Clear Calc Drug Dose 85.1 ml/min Estimated GFR () 95.5 Estimated GFR (Non- 82.4 BUN/Creatinine Ratio 17.0 Random Glucose 131 mg/dl Calcium Level 8.3 mg/dl Phosphorus Level 3.6 mg/dl Magnesium Level 2.5 mg/dl Total Bilirubin 0.8 mg/dl Direct Bilirubin 0.2 mg/dl Aspartate Amino Transf (AST/SGOT) 47 U/L Alanine Aminotransferase (ALT/SGPT) 83 U/L Alkaline Phosphatase 57 U/L Total Protein 6.0 gm/dl Albumin 3.2 gm/dl Globulin 2.8 gm/dl Albumin/Globulin Ratio 1.1 Hepatitis C Antibody Screen NEG Prothrombin Time 10.2 SECONDS Prothromb Time International Ratio 1.0 Activated Partial Thromboplast Time 26.1 SECONDS Partial Thromboplastin Ratio 1.0 Test 05/30/16 08:00 05/30/16 11:59 Bedside Glucose 128 mg/dl 110 mg/dl Assessment and Plan 1) POD #2 s/p laparoscopic cholecystectomy--per Dr. Thomas. 2) Diabetes mellitus type II -- Accu-Cheks before meals and at bedtime with NovoLog coverage. 3) Hypercholesterolemia--continue simvastatin 10 mg by mouth every 2 days. 4) Hypothyroidism--continue levothyroxine sodium 125 g by mouth every morning and liothyronine sodium 12.5 g by mouth every morning. Anticipate discharge to home tomorrow. She is medically stable for discharge. I recommend continuing the same home medications. She may resume the metformin at discharge. Discharge planning: home
[2016-05-30] MEDS ORDERED: NURSING VERBAL MED ORDER ONE (17:30)
[2016-05-30 19:34] VITALS: O2SAT 97
[2016-05-30 23:00] VITALS: BP 111/74; PULSE 64; TEMP 36.7; O2SAT 97
[2016-05-31] MEDS: LEVOTHYROXINE 125 MCG TAB PO SCH (05:47)
[2016-05-31] MEDS: LIOTHYRONINE SODIUM 25 MCG TAB PO SCH (05:47)
[2016-05-31] MEDS: CEFOXITIN IV 1,000 MG in DEXTROSE 5% 50ML 50 ML IV SCH (05:50)
[2016-05-31] MEDS ORDERED: HYDR-5688 PO (07:07)
[2016-05-31] MEDS ORDERED: AMOX875T PO (07:07)
--- NOTE | 2016-05-31 07:10 | Discharge Instructions ---
Discharge Instructions Admission Reason for Admission: Cholecystitis Discharge Discharge Diagnosis / Problem: acute, necrotizing cholecystitis Discharge Goals Goal(s): Decrease discomfort, Improve function, Improve disease control Activity Recommendations Activity Limitations: as noted below Lifting Limitations: no more than 10 pounds Exercise/Sports Limitations: until after follow-up appointment May Resume Sexual Activity: when tolerated Shower/Bathe: no limitations (shower/ no bath for 1 week) Driving or Machine Use: resume 3 days after discharge SPECIAL CARE INSTRUCTIONS: * Cover incisions and change daily for comfort/drainage. * Empty drain 2-3 times per day and record. * Avoid constipation- may use Senokot S and Milk of magnesia twice daily as directed on the package * May use ibuprofen for pain as tolerated. * Expect some swelling and bruising. Call your doctor if: * Temperature above 101 degrees * Pain not relieved by pain medicine ordered * There is increased drainage or redness from any incision * You have any unanswered questions or concerns [phone]. FOLLOW UP VISIT: If not already scheduled, please call the office for a follow-up visit. for this Fri- drain check OFFICE PHONE NUMBER: Dr. Thomas Office . Current Hospital Diet Patient's current hospital diet: Diabetes Type 2 Diet Discharge Diet Recommended Diet: Diabetes Type 2 Diet Procedures Procedures Performed: Laparoscopic Cholecystectomy Pending Studies Studies pending at discharge: no Medical Emergencies . Who to Call and When: Medical Emergencies: If at any time you feel your situation is an emergency, please call 911 immediately. . Non-Emergent Contact Non-Emergency issues call your: Surgeon . "Provider Documentation" section prepared by Alan Thomas. VTE Core Measure Inpt VTE Proph given/why not?: Unfractionated heparin SQ, SCD's
--- NOTE | 2016-05-31 07:22 | DISCHARGE SUMMARY ---
PRINCIPAL DIAGNOSIS: Acute necrotizing cholecystitis. PROCEDURES: The patient underwent laparoscopic cholecystectomy with drain placement. HISTORY OF PRESENT ILLNESS: The patient is a 56-year-old female presenting to the Emergency Room with acute abdominal pain and found to have evidence of acute cholecystitis, taken urgently to the operating room. HOSPITAL COURSE: The patient was taken from the ER to the operating room where she underwent laparoscopic cholecystectomy with drain placement. She had very severe acute necrotizing cholecystitis with large stones and sludge in the gallbladder. She did quite well with her operation. Has been on IV antibiotics with a drain in place and is felt stable for discharge home on oral antibiotics and oral pain medication. She will be seen in the surgical clinic this week.
[2016-05-31] MEDS: INSULIN ASPART 100 UNITS/ML 3 ML PEN SC SCH (08:00)
[2016-05-31] MEDS: HEPARIN SOD 5000 UNIT/0.5 ML CARP SQ SCH (08:16)
[2016-05-31 08:26] VITALS: BP 111/74; PULSE 64; TEMP 36.7; O2SAT 97
[2016-05-31] MEDS ORDERED: DOCUSATE SODIUM/SENNA 50/8.6MG TAB PO SCH (09:00)
[2016-05-31] MEDS ORDERED: MAGNESIUM HYDROXIDE SUSP 30 ML UDC PO SCH (09:00)
[2016-05-31 09:03] VITALS: BP 113/73; PULSE 73; TEMP 36.7; O2SAT 96
== END 2016-05-31 10:00 | disposition home or self-care (01) | DRG 419 ==
LOC: ENRESERVDT → ENRESERVTM → C.EDB 08:50 → C.3E 14:38
PROVIDERS: ADMIT Surgery; ATTEND Surgery
PROC: 0FT44ZZ Resection of Gallbladder, Percutaneous Endoscopic Approach (ICD-10-PCS; principal; 2016-05-29 12:50)
DX: K80.00 Calculus of gallbladder with acute cholecystitis without obstruction (principal); E11.9 Type 2 diabetes mellitus without complications; E03.9 Hypothyroidism, unspecified; E78.00 Pure hypercholesterolemia, unspecified; Z79.82 Long term (current) use of aspirin; Z79.899 Other long term (current) drug therapy; Z79.84 Long term (current) use of oral hypoglycemic drugs; Z88.8 Allergy status to other drugs, medicaments and biological substances; K82.8 Other specified diseases of gallbladder

== ENCOUNTER → 2016-09-28 | Outpatient (CLI) | payer BC ==
[~2016-09-28] MED LIST changes: +ASPI325T45 PO; -BIOT1CAP8 PO; +CALC500C3 PO; +CHOL2000 PO; -CLTP; +COENCAP8 PO; -CYCL10TA6 PO; +HYDR-5688 PO; +LEVO125T72 PO; -METH4PAK4 PO; +SIMV10TA2 PO; -SYN100 PO; -co q-10 PO
[2016-09-28 09:53] LABS: THYROID STIMULATING HORMONE 0.078 uIu/ml (0.300-4.500)
== END | disposition home or self-care (01) ==
LOC: C.LAB 07:52
PROVIDERS: ATTEND Internal Medicine Endocrinology, Diabetes & Metabolism
DX: C73 Malignant neoplasm of thyroid gland (principal); E89.0 Postprocedural hypothyroidism

== ENCOUNTER → 2017-01-23 | Outpatient (CLI) | payer BC ==
[~2017-01-23] MED LIST changes: -HYDR-5688 PO
--- NOTE | 2017-01-24 13:03 | MAMMOGRAPHY REPORT ---
BILATERAL DIGITAL SCREENING MAMMOGRAM TOMOSYNTHESIS WITH CAD: 01/23/2017 CLINICAL HISTORY: Routine screening. Patient has no complaints. TECHNIQUE: Breast tomosynthesis in addition to standard 2D mammography was performed. Current study was also evaluated with a Computer Aided Detection (CAD) system. COMPARISON: Comparison is made to exams dated: 01/21/2016 mammogram, 01/16/2015 mammogram, 01/15/2014 m ammogram, 01/14/2013 mammogram, 01/11/2012 mammogram, and 10/15/2010 mammogram - [facility]. BREAST COMPOSITION: There are scattered areas of fibroglandular density in both breasts. FINDINGS: The parenchymal pattern is similar to prior mammograms. There are stable punctate microca lcifications in both breasts. No developing mass, architectural distortion or cluster of suspicious microcalcifications is seen. IMPRESSION: ACR BI-RADS CATEGORY 2: BENIGN There is no mammographic evidence of malignancy. A 1 year screening mammogram is recommended. The pa tient will receive written notification of the results. Approximately 10% of breast cancers are not detected with mammography. A negative mammographic report should not delay biopsy if a clinically suggestive mass is present. Kellen Bustillos M.D. ay/:01/23/2017 16:26:01 Air Pollution Auditor: Lala GRANDE(Pete)(M), [facility] letter sent: Normal 1/2 BI-RADS Code: ACR BI-RADS Category 2: Benign
== END | disposition home or self-care (01) ==
LOC: C.MAMM 07:32
PROVIDERS: ATTEND Obstetrics & Gynecology
DX: Z12.31 Encounter for screening mammogram for malignant neoplasm of breast (principal)